=== PATIENT | female | born 1970 | race Caucasian/White ===

== ENCOUNTER → 2017-05-18 | Outpatient (CLI) | payer OTHER ==
--- NOTE | 2017-05-18 15:31 | MR ---
EXAMINATION TYPE: MR lumbar spine wo con DATE OF EXAM: 05/18/2017 COMPARISON: NONE HISTORY: low back pain CONTRAST: 0 mL intravenous . TECHNIQUE: Multiplanar, multisequence images of the lumbar spine were acquired. FINDINGS: Cord terminates at the T12-L1 level. L5-S1: No significant disc bulge or disc herniation. No spinal canal stenosis. No foraminal stenosi s. . L4-L5: Broad-based disc bulge is present with mild anterior thecal sac contact. No AP spinal canal st enosis is present. Neural foramen and moderate bilateral foraminal narrowing due to facet hypertrophy , greater on the right than the left. Some facet hypertrophy is present with posterior lateral thecal sac contact. Mild degenerative loss of disc height is present. There is disc desiccation through thi s level. L3-L4: No significant disc bulge or disc herniation. No spinal canal stenosis. No foraminal stenosi s. Mild facet hypertrophy is present. L2-L3: Very minimal disc bulge has anterior thecal sac contact. No AP spinal canal stenosis present. Neural foramen are patent. Neural foramen are patent.. L1-L2: No significant disc bulge or disc herniation. No spinal canal stenosis. No foraminal stenosi s. Neural foramen are patent.. T12-L1: No significant disc bulge or disc herniation. No spinal canal stenosis. No foraminal stenos is. Neural foramen are patent.. IMPRESSION: 1. Mild disc bulge L4-5 with anterior thecal sac contact. Very minimal disc bulge is present L2-3. No stenosis present. 2. Disc desiccation with mild loss of disc height L4-5. 3. Moderate 045 foraminal narrowing due to facet hypertrophy.
== END | disposition home or self-care (01) ==
LOC: RADMRIMAIN 13:02
PROVIDERS: ATTEND Anesthesiology
DX: M99.73 Connective tissue and disc stenosis of intervertebral foramina of lumbar region (principal); M51.16 Intervertebral disc disorders with radiculopathy, lumbar region
CPT/HCPCS: 72148

== ENCOUNTER → 2018-02-18 | Outpatient (CLI) | payer OTHER ==
--- NOTE | 2018-02-19 13:56 | MM ---
Reason for exam: screening (asymptomatic). Last mammogram was performed 2 years and 3 months ago. History: Family history of breast cancer in maternal aunt. Physical Findings: A clinical breast exam by your physician is recommended on an annual basis and results should be correlated with mammographic findings. MG Screening Mammo w CAD Bilateral CC and MLO view(s) were taken. Prior study comparison: November 07, 2015, bilateral MG diagnostic mammo w CAD [facility]. There are scattered fibroglandular densities. Stable benign calcifications. There is no discrete abnormality. No significant changes when compared with prior studies. ASSESSMENT: Benign, BI-RAD 2 RECOMMENDATION: Routine screening mammogram of both breasts in 1 year.
== END | disposition home or self-care (01) ==
LOC: RADMAMWWP 12:53
PROVIDERS: ATTEND Family Medicine
DX: Z12.31 Encounter for screening mammogram for malignant neoplasm of breast (principal)
CPT/HCPCS: 77067

== ENCOUNTER → 2019-02-08 | Outpatient (CLI) | payer OTHER ==
--- NOTE | 2019-02-08 16:04 | XR ---
EXAMINATION TYPE: XR ankle complete RT DATE OF EXAM: 02/08/2019 CLINICAL HISTORY: Medial ankle pain after slip and fall TECHNIQUE: Frontal, lateral and oblique images of the right ankle are obtained. COMPARISON: None. FINDINGS: There is no acute fracture/dislocation evident in the right ankle. Small plantar heel spur . Mild osteophytic change of the talonavicular joint. The ankle mortise appears within normal limits. Nonspecific soft tissue swelling over the lateral malleolus. IMPRESSION: Lateral soft tissue swelling over the ankle joint with no acute fracture or dislocation i n the right ankle.
== END | disposition home or self-care (01) ==
LOC: RADXRMAIN 14:41
PROVIDERS: ATTEND Family Medicine
DX: M25.471 Effusion, right ankle (principal)

== ENCOUNTER → 2019-11-23 | Outpatient (CLI) | payer OTHER ==
--- NOTE | 2019-11-24 09:27 | XR ---
EXAMINATION TYPE: XR Hip Bilateral Complete DATE OF EXAM: 11/23/2019 COMPARISON: 09/19/2013 HISTORY: 49 year-old female chronic bilateral hip and knee pain. M25.561 M25.559 M25.562 TECHNIQUE: 2 views each side FINDINGS: Left: Mild degenerative spurring. Subchondral sclerosis along the superolateral weightbearing aspect of the acetabulum. Overall hip joint space appears maintained. No acute fracture, subluxation, dislocation. Right: Degenerative spurring. Overall hip joint space appears maintained. No acute fracture, subluxation, di slocation. IMPRESSION: Relatively similar mild bilateral hip OA. No acute osseous abnormality seen.
--- NOTE | 2019-11-24 09:29 | XR ---
EXAMINATION TYPE: XR knee complete bilateral DATE OF EXAM: 11/23/2019 COMPARISON: Left 04/12/2010 HISTORY: 49-year-old female chronic bilateral knee pain. M25.561 M25.559 M25.562 TECHNIQUE: 3 views each side FINDINGS: Right: Minimal marginal spurring medial and patellofemoral compartments. No knee joint effusion. Extensor me chanism is intact. No acute fracture, subluxation, or dislocation. Left: Minimal marginal spurring medial and patellofemoral compartments. Extensor mechanism intact. No acute fracture, subluxation, dislocation. No joint effusion. IMPRESSION: Some minimal early degenerative spurring in the medial and patellofemoral compartments on both sides. No acute osseous abnormality seen.
== END | disposition home or self-care (01) ==
LOC: RAD 16:47
PROVIDERS: ATTEND Family Medicine
DX: M16.0 Bilateral primary osteoarthritis of hip (principal); M25.561 Pain in right knee
CPT/HCPCS: 73521

== ENCOUNTER 2020-01-10 06:47 | Emergency (ER) | payer OTHER ==
[2020-01-10] MEDS ORDERED: predniSONE 50 MG TAB PO STA (07:14)
[2020-01-10] MEDS ORDERED: IPRATROPIUM-ALBUTEROL 3 ML NEB INHALATION STA (07:14)
[2020-01-10] MEDS ORDERED: cefTRIAXone 1,000 MG VIAL (IM USE) IM STA (07:16)
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
--- NOTE | 2020-01-10 07:53 | XR ---
EXAMINATION TYPE: XR chest 2V DATE OF EXAM: 01/10/2020 COMPARISON: 06/03/2015 HISTORY: 49 year-old female shortness of breath, difficulty breathing TECHNIQUE: PA and lateral views FINDINGS: Heart upper limits of normal in size. Mild hyperinflation. Mild interstitial prominence. No consolida tion or pleural effusion. IMPRESSION: Mild hyperinflation and mild interstitial prominence. Correlate for possible underlying bronchitis or asthma and/or COPD. No focal infiltrate.
[2020-01-10 08:14] VITALS: BP 132/100; PULSE 20; RESP 86; TEMP 98.1
== END 2020-01-10 08:14 | disposition home or self-care (01) ==
LOC: EC 06:47
DX: J20.9 Acute bronchitis, unspecified (principal); E11.9 Type 2 diabetes mellitus without complications; K21.9 Gastro-esophageal reflux disease without esophagitis; E78.5 Hyperlipidemia, unspecified; J44.9 Chronic obstructive pulmonary disease, unspecified; F41.9 Anxiety disorder, unspecified; F31.9 Bipolar disorder, unspecified; F17.200 Nicotine dependence, unspecified, uncomplicated; Z20.828 Contact with and (suspected) exposure to other viral communicable diseases; Z79.84 Long term (current) use of oral hypoglycemic drugs; Z79.899 Other long term (current) drug therapy; Z88.2 Allergy status to sulfonamides; Z88.8 Allergy status to other drugs, medicaments and biological substances; Z86.73 Personal history of transient ischemic attack (TIA), and cerebral infarction without residual deficits
CPT/HCPCS: 94640; 71046; 99285; 96372; U0003; J0696; J7512

== ENCOUNTER → 2020-01-12 | Outpatient (CLI) | payer OTHER ==
--- NOTE | 2020-01-16 12:22 | MM ---
Reason for exam: screening (asymptomatic). Last mammogram was performed 1 year and 11 months ago. Physical Findings: A clinical breast exam by your physician is recommended on an annual basis and results should be correlated with mammographic findings. MG Screening Mammo w CAD Bilateral CC and MLO view(s) were taken. Prior study comparison: February 18, 2018, bilateral MG screening mammo w CAD. November 07, 2015, bilateral MG diagnostic mammo w CAD [facility]. There are scattered fibroglandular densities. There is chronic nodularity bilaterally medially. No significant changes when compared with prior studies. ASSESSMENT: Benign, BI-RAD 2 RECOMMENDATION: Routine screening mammogram of both breasts in 1 year.
== END | disposition home or self-care (01) ==
LOC: RADMAMWWP 14:28
PROVIDERS: ATTEND Family Medicine
DX: Z12.31 Encounter for screening mammogram for malignant neoplasm of breast (principal)
CPT/HCPCS: 77067

== ENCOUNTER → 2021-05-23 | Outpatient (CLI) | payer OTHER ==
[2021-05-23 13:52] VITALS: BP 132/81; PULSE 87; RESP 18; TEMP 98.2
--- NOTE | 2021-05-23 14:00 | P.PN ---
Subjective Progress Note Date: 05/23/21 Principal diagnosis: A 51 yr old female with a history of severe and chronic low back pain secondary to lumbar degenerative disc diseases and lumbar spondylosis with facet arthropathy presents today for evaluation status post intralaminar LESI L4-L5 #1. Patient states she experienced 100% pain relief and 50% pressure relief status post procedure. Pressure level is currently at 0 out of 10 in intensity when sitting but 5 out of 10 in intensity when standing and walking. Pressure sensation and radiates to the left lateral hip and lateral thigh as patient sits veered to the right. Pain is alleviated with medications, topicals, injections, heat, physical therapy though she was to hold to stop until she completes procedures, chiropractic treatments 2 years ago, use of a walker for ambulation, repositioning and rest. Interventional pain procedures completed include intralaminar LESI L4-L5 #1 Patient is currently on Celebrex, Motrin 600 mg, Lyrica from Dr. Hinojosa Patient denies any side effects of the medication(s), denies excessive drowsiness or sleepiness, denies suicidal ideation and reports that the current pain medication is helping to control the pain and improve activities of daily living. Patient denies any motor or sensory deficits. Patient denies any fever or night sweats, denies any change in the bowel movements or urination. Physical Examination: -Constitutional: Cooperative. Not in acute distress . -HEENT: Neck is supple. No lymphadenopathy. No thyromegaly. Normal thyroid size. Eyes: No ptosis , no icterus, no photophobia. ENT: No auditory deficits. Normal oropharynx. No Thrush. - Respiratory: Chest clear to auscultations bilaterally. No wheezing. No rhonchi. - Cardiovascular: Regular rate and rhythm. S1 / S2 , no S3 , no S4. - Gastrointestinal: Abdomen soft no tenderness. Bowel sounds positive in all four quadrants. No organomegaly. - Genitourinary: Deferred. - Neurologic: Cranial nerve II to XII intact. No focal neurological deficits. - Psychatric: Alert & oriented x 3. Matching mood & appropriate affect. Judgment and insight intact. - Lymphatic: No Lymphadenopathy. - Musculoskeletal: Cervical spine: Muscle bulk/ tone/ strength in the bilateral upper extremities normal. Facet loading test cervical area positive. Lumbar spine: Motor bulk/ tone/ strength lower extremities , thigh and legs : 5/5 Deep tendon reflexes : Normal Knee Jerk. Normal Ankle Jerk . Vertebral body tenderness to palpation over Lumbar Facet Loading Test positive Straight Leg Raise: positive at 30 degrees right side/ left side Gaenslen's Test positive Sacral spine : Severe tenderness over the Sacroiliac joint: right side / left side Range of motion: Flexion of the lumbar spine <60 degrees Range of motion: Extension of the lumbar spine <20 degrees Gaenslen's Test positive Vahid test: positive right side / left side Assessment and plan: Chronic low back pain secondary to lumbar degenerative disc disease , lumbar spondylosis with facet arthropathy without myelopathy Recommendation of left TFESI L4-L5. May need a series of injections, up to 3 within a six-month period, for optimal pain relief. Denies anticoagulants use. Admits to DM Type II with use of Insulin, Metformin and Actos. All patient questions answered MAPS reviewed and it was appropriate. I have spent 31 minutes on patient care today. Dr Connolly was available by phone for the evaluation of this patient. The time was used to review the medical records including relevant urine studies and Prescription history (MAPs), review of the available imaging, evaluation and examination of the patient, coordination of care with the medical staff and if applicable referring physicians, as well as creation of the medical record Objective - Vital Signs Vital signs: Vital Signs Temp 98.2 F 05/23/21 13:47 Pulse 87 05/23/21 13:47 Resp 18 05/23/21 13:47 BP 132/81 05/23/21 13:47 Pulse Ox 94 L 05/23/21 13:47 PQRS Measure Charge Sheet Mode of Arrival: Ambulatory - Pain Location Lower Back Non-Pharmacological Interventions: Chiropractic Treatment, Heat, Home Exercise, Inactivity, Physical Therapy, Stretching Pharmacological Interventions: Epidural, Medication, PRN Medication, Scheduled Medication, Topical Medication PQRS Narrative: Smoking Status Current every day smoker Blood Pressure 132/81 Pain Intensity [Lower Back] 5 Scale Used Numeric (1 - 10) Hx Alcohol Use (MH) No Home Medications: Ambulatory Orders metFORMIN HCL [Glucophage] 500 mg PO BID 01/01/14 Loratadine [Claritin] 10 mg PO DAILY 06/12/14 Lurasidone [Latuda] 40 mg PO AC-SUPPER 06/03/15 Pregabalin [Lyrica] 200 mg PO BID 06/03/15 Simvastatin [Zocor] 20 mg PO AC-SUPPER 06/03/15 Pioglitazone HCl [Actos] 30 mg PO QAM 11/03/15 Albuterol Inhaler [Ventolin Hfa Inhaler] 1 puff INHALATION DIRECTED PRN 05/08/21 Celecoxib [CeleBREX] 200 mg PO QAM 05/08/21 Cholecalciferol [Vitamin D3 (25 Mcg = 1000 Iu)] 50 mcg PO DAILY 05/08/21 INSULIN LISPRO (humaLOG) [humaLOG] 1 dose SQ AC-TID 05/08/21 Insulin Glargine,Hum.rec.anlog [Lantus Solostar Pen] 35 unit SQ HS 05/08/21 Insulin Glargine,Hum.rec.anlog [Lantus Solostar Pen] 40 unit SQ QAM 05/08/21 Omeprazole [PriLOSEC] 40 mg PO QAM 05/08/21
== END ==
LOC: PNWHC3 12:40
PROVIDERS: ATTEND Physician Assistant Medical
DX: G89.29 Other chronic pain (principal); M51.36 Other intervertebral disc degeneration, lumbar region; M47.816 Spondylosis without myelopathy or radiculopathy, lumbar region; F17.200 Nicotine dependence, unspecified, uncomplicated; Z88.8 Allergy status to other drugs, medicaments and biological substances; Z88.2 Allergy status to sulfonamides
CPT/HCPCS: 99211